=== PATIENT | female | born 1995 | race Caucasian/White ===

== ENCOUNTER 2018-09-24 00:06 | Emergency (ER) | payer BC ==
[~2018-09-24] VITALS: Ht 167.6 cm; Wt 77.3 kg
[2018-09-24 00:15] VITALS: BP 118/76; PULSE 115; TEMP 98.6
[2018-09-24] MEDS ORDERED: SYNTHROID0.075 MG/T PO (00:15)
[2018-09-24] MEDS ORDERED: CLEOCIN HC150 MG/CAP PO (01:27)
== END 2018-09-24 01:55 | disposition home or self-care (01) ==
LOC: COL.ER 00:06
DX: S91.311A Laceration without foreign body, right foot, initial encounter (principal); Z88.8 Allergy status to other drugs, medicaments and biological substances; W26.8XXA Contact with other sharp object(s), not elsewhere classified, initial encounter; Y92.410 Unspecified street and highway as the place of occurrence of the external cause